=== PATIENT | female | born 1960 | race Caucasian/White ===

== ENCOUNTER → 2020-07-06 08:52 | Outpatient (CLI) | payer MEDICARE, BC, SELFPAY ==
--- NOTE | 2020-07-06 08:52 | FL_ITS ---
PROCEDURE: FL BARIUM SWALLOW CLINICAL INDICATION: diff swallowing COMPARISON: No exams were available for comparison TECHNIQUE: In the upright position the patient was observed to swallow barium in both the AP and lateral view. The cervical esophagus was examined under fluoroscopy with images obtained. The patient was then placed prone in the right anterior oblique position and was observed to swallow barium with Valsalva technique . FLUOROSCOPY TIME: 1 minutes and 1 second FINDINGS: Study is somewhat limited due to patient's inability to properly swallow and adequate amount contrast. The patient was only able to swallow a small amount of contrast at a time therefore lack incomplete distension. No obvious annular constricting lesions or large polypoid filling defects evident. There was spasm of the cricopharyngeus noted on separate imaging sets. No hiatal hernia evident. IMPRESSION: Somewhat limited exam due to lack of adequate distention. There is spasm of the cricopharyngeus muscle. Otherwise negative Dictated by: Rebel Farias MD 07/06/2020 10:42 Reebl Farias MD in [place] 07/06/2020 10:42
== END ==
PROVIDERS: PCP Physician Assistant; Visit Provider Otolaryngology
DX: R13.10 Dysphagia, unspecified (principal)
CPT/HCPCS: 74220

== ENCOUNTER → 2020-07-15 13:58 | Outpatient (CLI) | payer MEDICARE, BC, SELFPAY ==
--- NOTE | 2020-07-15 14:02 | XR_ITS ---
PROCEDURE: XR SHOULDER RT MIN 2V CLINICAL INDICATION: shoulder pain COMPARISON: No exams were available for comparison FINDINGS: No fracture or dislocation. No lytic or blastic change. There is normal mineralization. The joint spaces are well-preserved. No significant degenerative/arthritic changes. No erosive changes evident. Other findings:None. IMPRESSION: No acute findings. Dictated by: Rebel Farias MD 07/15/2020 14:39 Rebel Farias MD in [place] 07/15/2020 14:39
== END ==
PROVIDERS: PCP Physician Assistant; Visit Provider Physician Assistant
DX: M25.511 Pain in right shoulder (principal)
CPT/HCPCS: 73030

== ENCOUNTER → 2020-07-28 14:35 | Outpatient (CLI) | payer MEDICARE, BC, SELFPAY ==
--- NOTE | 2020-07-28 14:39 | CT_ITS ---
PROCEDURE: CT CHEST WO CON CLINICAL INDICATION: NODULES Lung nodules, pulmonary nodule evaluation COMPARISON: No exams were available for comparison TECHNIQUE: Axial images obtained with sagittal and coronal reformats. All CT scans at the facility use one or more dose reduction, viz: automated exposure control, ma/kV adjustment per patient size (including targeted exams where dose is matched to indication, i.e. head), or iterative reconstruction technique. FINDINGS: HEART AND MEDIASTINAL STRUCTURES: There are scattered small lymph nodes in the mediastinum with no dominant mediastinal or hilar adenopathy or mass. Coronary artery calcifications are present. LUNGS AND PLEURAL SPACES: No suspicious pulmonary nodules apparent. There is some faint ground-glass opacity in the lateral aspect of the left lower lobe inferiorly nonspecific. No effusions or lobar consolidation. Central airways are unremarkable. BONY STRUCTURES: Sclerotic focus is present in the left humeral head and may represent a bone island. UPPER ABDOMEN: Scattered areas of decreased attenuation are present in the liver consistent with fatty liver infiltration ADDITIONAL FINDINGS: No other significant abnormalities. IMPRESSION: 1. No suspicious pulmonary nodules apparent. 2. Patchy ground-glass density peripheral in nature in the left lower lobe laterally nonspecific and could be infectious or inflammatory 3. Coronary artery calcification. 4. Fatty liver Dictated by: Rebel Farias MD 07/29/2020 09:38 Rebel Farias MD in [facility] 07/29/2020 09:38
== END ==
PROVIDERS: PCP Physician Assistant; Visit Provider Internal Medicine Pulmonary Disease
DX: R93.89 Abnormal findings on diagnostic imaging of other specified body structures (principal)
CPT/HCPCS: 71250

== ENCOUNTER → 2020-08-11 13:34 | Outpatient (CLI) | payer MEDICARE, BC, SELFPAY ==
--- NOTE | 2020-08-11 13:39 | XR_ITS ---
PROCEDURE: XR SHOULDER RT MIN 2V CLINICAL INDICATION: right shoulder pain COMPARISON: CR XR SHOULDER RT MIN 2V from 07/15/2020 FINDINGS: No fracture or dislocation. No lytic or blastic change. There is normal mineralization. The joint spaces are well-preserved. No significant degenerative/arthritic changes. No erosive changes evident. Other findings:None. IMPRESSION: No acute findings. Dictated by: Rebel Farias MD 08/11/2020 14:15 Rebel Farias MD in [place] 08/11/2020 14:15
== END ==
PROVIDERS: PCP Physician Assistant; Visit Provider Orthopaedic Surgery
DX: M25.511 Pain in right shoulder (principal)
CPT/HCPCS: 73030

== ENCOUNTER 2020-10-21 16:11 | Emergency (ER) | payer MEDICARE, BC, SELFPAY ==
[2020-10-21 16:12] VITALS: BP 145/115; PULSE 91; RESP 20; TEMP 36.8; O2SAT 98; BMI 29.3
--- NOTE | 2020-10-21 16:15 | XR_ITS ---
PROCEDURE: XR CHEST PORTABLE CLINICAL HISTORY: soa Shortness of COMPARISON: CT CT CHEST WO CON from 07/28/2020 FINDINGS: The cardiomediastinal silhouette and pulmonary vascularity are within normal limits. The lungs are clear without infiltrates, suspicious nodules, or pleural effusions. No acute bony abnormalities. IMPRESSION: No acute findings. Dictated by: Rebel Farias MD 10/21/2020 17:44 Rebel Farias MD in [place] 10/21/2020 17:44
--- NOTE | 2020-10-21 16:18 | PC.NURSE ---
rad notified of xray order, spoke with tamar
[2020-10-21 16:24] LABS: Basophils # 0.1 K/mm3 (0-0.2); Basophils % 1.3 % (0.1-2.0); Eosinophils # 0.3 K/mm3 (0.0-0.4); Eosinophils % 2.8 % (0.1-12.0); Hematocrit 45.7 % (37.0-47.0); Hemoglobin 15.3 g/dL (12.2-16.2); Lymphocytes # 2.6 K/mm3 (0.7-4.5); Lymphocytes % 27.4 % (10-50); Mean Corpuscular HGB Conc 33.5 g/dL (31.8-35.4); Mean Corpuscular Hemoglobin 31.6 pg (27.0-31.2); Mean Corpuscular Volume 94.3 fl (81-99); Mean Platelet Volume 7.7 fl (7.4-10.4); Monocytes % 10.3 % (1.7-9.3); Neutrophils # 5.6 K/mm3 (1.8-7.8); Neutrophils % 58.3 % (37.0-80.0); Platelet Count 413 K/mm3 (142-424); Red Blood Count 4.84 M/mm3 (4.20-5.40); Red Cell Distribution Width 13.6 % (11.5-17.5); White Blood Count 9.5 K/mm3 (4.8-10.8)
--- NOTE | 2020-10-21 16:25 | ECG_ITS ---
APPROVED REPORT Exam: Resting ECG HR:84 bpm ECG Measurements Heart Rate 84 AXES MN 190 P 48 QRSd 86 QRS 32 QT 384 T 44 QTc 453 Conclusion Normal sinus rhythm Left atrial abnormality RSR' or QR pattern in V1 suggests right ventricular conduction delay Borderline ECG Electronically signed by : Sujit Kilgore, 10/23/2020 07:13:06
[2020-10-21 16:37] VITALS: BP 91/54; PULSE 88; O2SAT 93
[2020-10-21 16:38] LABS: Anion Gap 15.2 mEq/L (5-15); Blood Urea Nitrogen 10 mg/dl (7-17); Calcium 10.4 mg/dl (8.4-10.2); Carbon Dioxide 27 mmol/L (22.0-30.0); Chloride 103 mmol/L (98-107); Creatinine Clearance Estimated 106 mL/min (50-200); Estimated Glomerular Filt Rate 86 ml/min (>60); GFR (African American) 104 ML/MIN (>60); Glucose 123 mg/dl (74-100); Potassium 4.2 mmoL/L (3.5-5.1); Sodium 141 mmol/L (136-145)
[2020-10-21 16:42] LABS: D-Dimer 0.72 ug/mL (0.15-8.0)
[2020-10-21 17:11] LABS: Troponin I < 0.01 ng/ml (0.00-0.034)
[2020-10-21 17:15] VITALS: BP 152/88; PULSE 90; O2SAT 96
--- NOTE | 2020-10-21 17:21 | CT_ITS ---
PROCEDURE: CT ANGIO CHEST CLINCIAL INDICATION: pulmonary embolism Chest pain COMPARISON: No exams were available for comparison TECHNIQUE: IV Contrast: 70ML Isovue 370 Axial images obtained with sagittal and coronal reformats. All CT scans at the facility use one or more dose reduction, viz: automated exposure control, ma/kV adjustment per patient size (including targeted exams where dose is matched to indication, i.e. head), or iterative reconstruction technique. FINDINGS: HEART AND MEDIASTINAL STRUCTURES: No evidence of aortic aneurysm, dissection, or pulmonary embolus. There are mildly prominent lymph nodes within the mediastinum in the AP window and left paratracheal region. These appear slightly more bulky. LUNGS AND PLEURAL SPACES: Mild motion artifact does somewhat obscure fine detail in the lung bases. No lobar consolidation or collapse. There is a 13 mm left juxta hilar nodule which could be due to developing pulmonary nodule or lymph node.. 4 mm nodule left upper lobe medially unchanged. BONY STRUCTURES: No acute bony abnormalities apparent. UPPER ABDOMEN: Unremarkable. ADDITIONAL FINDINGS: No other significant abnormalities. IMPRESSION: 1. No evidence of pulmonary embolus or aortic aneurysm or dissection. 2. Mediastinal adenopathy which is slightly progressed compared to the previous exam. 3. 13 mm nodule in the left infrahilar area which may be related to developing neoplasm or adenopathy. Suggest PET-CT for further evaluation. Dictated by: Rebel Farias MD 10/22/2020 06:38 Rebel Farias MD in [place] 10/22/2020 06:38
--- NOTE | 2020-10-21 17:34 | HMH.EDGENADL ---
ED Disposition Clinical Impression: Cough, Pulmonary nodule Disposition: Home, Self-Care Condition on Discharge: Good Additional Instructions: Follow-up with your primary care physician and pulmonary for evaluation of the pulmonary nodule. Turn to the emergency department within the next 8 hours should you have worsening chest pain shortness of air fever or any other concerns. Otherwise follow-up in the next 1 to 2 days with your primary care physician Referrals: Silvina Adamson PA [Primary Care Provider] - Acosta Arvizu MD [Physician] - - Critical Care Critical Care Time: No Attestation: On 10/21/20, the high probability of a clinically significant, sudden or life threatening deterioration of the following system(s) required my full and direct attention, intervention and personal management. The time I documented below is in addition to time spent performing reported procedures but includes the following listed in this critical care notation. Medical Decision Making - Medical Records Medical records reviewed: Yes: I reviewed the patient's medical records. - Domingo Inquiry Pt receiving controlled substance: No Vital Signs: 10/21/20 16:12 10/21/20 16:37 10/21/20 17:15 Temperature 98.2 F Temperature Source Oral Pulse Rate [Right Radial] 91 H 88 90 Respiratory Rate 20 Blood Pressure [Right Arm] 145/115 H 91/54 L 152/88 H Blood Pressure Mean [Right Arm] 125 66 109 Blood Pressure Source [Right Arm] Automatic Cuff Automatic Cuff Automatic Cuff Blood Pressure Position [Right Arm] Sitting Sitting Sitting 02 Sat by Pulse Oximetry 98 93 L 96 Oxygen Delivery Method Room Air Room Air Room Air - Lab Data Lab Results 10/21/20 16:15: WBC 9.5, RBC 4.84, Hgb 15.3, Hct 45.7, MCV 94.3, MCH 31.6 H, MCHC 33.5, RDW 13.6, Plt Count 413, MPV 7.7, Neut % (Auto) 58.3, Lymph % (Auto) 27.4, Haakon % (Auto) 10.3 H, Eos % (Auto) 2.8, Baso % (Auto) 1.3, Neut # (Auto) 5.6, Lymph # (Auto) 2.6, Haakon # (Auto) 1.0, Eos # (Auto) 0.3, Baso # (Auto) 0.1 12/16/20 16:15: D-Dimer 0.72 10/21/20 16:15: Sodium 141, Potassium 4.2, Chloride 103, Carbon Dioxide 27, Anion Gap 15.2 H, BUN 10, Creatinine 0.70, Estimated Creat Clear 106, Estimated GFR 86, Est GFR ( Amer) 104, Glucose 123 H, Calcium 10.4 H, Troponin I < 0.01 10/21/20 16:15: SARS-CoV-2 IgG Ab (Rapid) Negative, SARS-CoV-2 IgM Ab (Rapid) Negative Result diagrams: 10/21/20 16:15 10/21/20 16:15 Orders (Tests/Meds): ED MEDICATIONS Discontinued Medications Generic Name Dose Route Start Last Admin Trade Name Freq PRN Reason Stop Dose Admin Iopamidol 70 ml 10/21/20 17:47 10/21/20 17:48 Iopamidol-370 (76%); 50ml Vial IV 10/21/20 17:48 70 ml ONCE ONE Administration Sodium Chloride 10 ml 10/21/20 17:47 10/21/20 17:48 Sodium Chloride 0.9% 10ml Syr (Rad Only) IV 10/21/20 17:48 10 ml ONCE ONE Administration Sodium Chloride 50 ml 10/21/20 17:47 10/21/20 17:48 0.9 % Sodium Chloride 50 Ml Vial IV 10/21/20 17:48 50 ml ONCE ONE Administration ORDERS Category Date Time Status CTA Chest [CT angio chest] Stat Cat Scan 10/21/20 17:21 Taken Troponin I Q3H Lab 10/21/20 19:15 Ordered Troponin I Q3H Lab 10/21/20 22:15 Ordered Medical Decision Narrative: 60-year-old female with shortness of breath and cough for the last few days. She is in no acute distress nontoxic-appearing comfortable in the room. Her symptoms are atypical for myocardial infarction. She was low risk per Wells score however D-dimer was positive, CT angio chest was obtained to assess for pulmonary embolism. EKG was otherwise unremarkable. CT angio chest was negative for pulmonary embolism however there was possible malignancy identified. I gave the CAT scan report to the patient and instructed her to follow-up with pulmonary and with her primary care physician for further work-up. Very low risk for myocardial infarction and first troponin was negative, in the se
[2020-10-21 17:35] VITALS: BP 144/90; PULSE 81; O2SAT 98
[2020-10-21 17:38] LABS: Coronavirus 19 IgG Antibody Negative (Negative); Coronavirus 19 IgM Antibody Negative (Negative)
--- NOTE | 2020-10-21 17:38 | PC.NURSE ---
pt gone to ct
[2020-10-21 18:30] VITALS: BP 152/88; PULSE 90; O2SAT 97
--- NOTE | 2020-10-21 18:58 | PC.NURSE ---
Spoke with dispatch at [facility], they have a ride coming for the pt and his name is Reji and he will be coming from [place].
[2020-10-21 19:17] VITALS: BP 148/84; PULSE 92; RESP 18; TEMP 36.8; O2SAT 97
== END 2020-10-21 19:19 | disposition home or self-care (01) ==
PROVIDERS: Emergency Provider Emergency Medicine; PCP Physician Assistant
DX: R91.1 Solitary pulmonary nodule (principal); F41.8 Other specified anxiety disorders; E03.9 Hypothyroidism, unspecified; Z79.899 Other long term (current) drug therapy
CPT/HCPCS: 71045; 71275; 80048; 84484; 85025; 85378; 86328; 93005; 99283; Q9967

== ENCOUNTER 2020-11-02 13:00 | Outpatient (RCR) | payer MEDICARE, BC, SELFPAY ==
--- NOTE | 2020-08-14 14:54 | HMH.PTOPEV ---
PT Outpatient Evaluation Rehab PT Outpatient Evaluation Start: 08/14/20 14:02 Freq: Status: Active Protocol: Document 08/14/20 14:43 PHOLINCOLN (Rec: 08/14/20 14:54 PHORNE [id number]) Electronically Signed By Wilberto Pardo, PT 08/14/20 14:43 Outpatient Therapy Subjective History Subjective History Pt is 59 yowf who presents c/o L side low back pain x ~ 3 mos. She reports insidious onset of symptoms and initially had severe L LE pain . However, at this time her L LE is no longer painful and all of her symptoms reported are the left side of my back feels tight. She reports no numbness or tingling at this time. Pt presents with some obviously high levels of anxiety at baseline. Chief Complaint Pain,Stiff Symptom Type Ache Symptoms Relieved By Rest/Positioning,Heat Symptoms Aggravated By Walking Prior Functional Limitations None Current Functional Limitations Walking Symptom Description Constant but Variable,Activity Dependent Level of pain today (0-10) 4 Pain scale - at its worst (0-10) 9 Lumbopelvic Eval Posture Thoracic Spine Posture Standing Position Neutral Lumbar Spine Posture Standing Position Neutral Assistive device Assistive Devices None / NA Gait Observation General Gait Pattern Observation No Deviations/Normal Palapation tenderness left lumbar spinal tenderness Yes: 2/4 paraspinal tenderness Yes: 2/4 buttock tenderness Yes: 2/4 Range of Motion Lumbar Spine Active Flexion Range of 0-65 Motion (degrees) Lumbar Spine Active Extension Range of 0-25 Motion (degrees) Left Lumbar Spine Lateral Flexion Active 0-20 Range of Motion (degrees) Right Lumbar Spine Lateral Flexion 0-20 Active Range of Motion (degrees) Manual Muscle Test Bilateral Knee Extension Strength Grade 5 Normal Knee Flexion Strength Grade 5 Normal Hip Flexion Strength Grade 5 Normal Hip Abduction Strength Grade 5 Normal Hip Adduction Strength Grade 5 Normal Hip Extension Strength Grade 5 Normal Gluteus Robert Strength Grade 5 Normal Extensor Hallucis Longus Strength Grade 5 Normal Ankle Dorsiflexion Strength Grade 5 Normal Gastronemius/Soleus Strength Grade 5 Normal DTR Rt Patellar 2+ Lt Patellar 2+ Rt Gastroc/Soleus 2+ Lt Ga
--- NOTE | 2020-09-14 13:55 | HMH.RHREAS ---
Rehab Reassessment Rehab OP Re-assessment Start: 09/14/20 13:51 Freq: Status: Active Protocol: Document 09/14/20 13:51 TIANNA (Rec: 09/14/20 13:54 TIANNA [id number]) Electronically Signed By Wilberto Pardo, PT 09/14/20 13:51 Rehab Re-assessment Subjective Subjective Pt reports pain is decreased overall, but some spasm remain . Objective Objective Notes Lumbar AROM remains WNL throughout. Palpation tenderness: 1/4 B lumbar paraspinals. Assessment Progress Assessment Progressing as Expected Assessment Notes Continues to improve mobility and has less pain. Stretching continues to improve. Patient goals met ST,2,3,4 Goals Not Met LT,2,3,4 Revised Goals none Plan Plan Continue per initial POC. Frequency of Therapy 2 x/wk Duration of therapy 8 wks Time and Billing Re-Eval Time 15 Re-Eval Billing Units 1 PHYSICIAN CERTIFICATION: I certify the specified therapy services for Marizol Landaverde are required, authorized, and reviewed every 30 days.
== END 2020-11-02 13:05 | disposition home or self-care (01) ==
LOC: PT 13:00
PROVIDERS: PCP Physician Assistant; Visit Provider Physician Assistant
DX: M54.32 Sciatica, left side (principal); M54.5 Low back pain
CPT/HCPCS: 97010; 97014; 97110; 97140; 97163; 97164; G0283

== ENCOUNTER → 2020-11-10 10:11 | Outpatient (CLI) | payer MEDICARE, BC, SELFPAY ==
--- NOTE | 2020-11-10 10:12 | CA_ITS ---
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 101.00 (40-130 cm/s) MV A Velocity 94.00 (40-130 cm/s) E/A Ratio 1.07 MV Decel. Time 210.00 (160-240 ms) MV PHT 62.00 ms Left Ventricle Left atrium is qualitatively mildly enlarged, left ventricle is normal size, mild qualitative concentric left ventricular hypertrophy, visually estimated ejection fraction 55% with no regional wall motion abnormality, diastolic parameters are within normal range. Right Ventricle Right atrium and right ventricle are normal size and contractility. Aortic Valve Aortic valve is minimally thickened and fibrosed, there is no aortic stenosis or aortic insufficiency. Mitral Valve Mitral valve is grossly normal, there is mild mitral regurgitation. Tricuspid Valve Tricuspid valve grossly normal, there is trace tricuspid regurgitation. Pulmonic Valve Pulmonic valve is poorly visualized. Great Vessels Aortic root is normal size. Pericardium No significant pericardial effusion noted. Conclusion 1. Mildly enlarged left atrium, normal left ventricular size, mild concentric left ventricular hypertrophy, visually estimated ejection fraction 55% with no regional wall motion abnormality, diastolic parameters are within normal range. 2. Mild mitral and trace tricuspid regurgitation. 3. No significant pericardial effusion noted. Electronically signed by : Johnnie Beach, 11/11/2020 06:02:06
== END ==
PROVIDERS: PCP Physician Assistant; Visit Provider Physician Assistant
DX: R06.00 Dyspnea, unspecified (principal); Z03.818 Encounter for observation for suspected exposure to other biological agents ruled out
CPT/HCPCS: 93306; U0003

== ENCOUNTER → 2020-12-01 10:59 | Outpatient (CLI) | payer MEDICARE, BC, SELFPAY ==
[2020-12-01 13:18] LABS: Coronavirus 19 IgG Antibody Positive (Negative); Coronavirus 19 IgM Antibody Negative (Negative)
== END ==
PROVIDERS: Visit Provider Internal Medicine Pulmonary Disease
DX: Z01.812 Encounter for preprocedural laboratory examination (principal); Z20.822 Contact with and (suspected) exposure to COVID-19; Z86.16 Personal history of COVID-19; R91.1 Solitary pulmonary nodule; R59.0 Localized enlarged lymph nodes
CPT/HCPCS: 36415; 86328

== ENCOUNTER 2020-12-02 11:16 | Day surgery (SDC) | payer MEDICARE, BC, SELFPAY ==
[2020-11-26 13:29] VITALS: BMI 30.9
[2020-12-02] VITALS (9 sets, daily range): BP systolic 126–157; BP diastolic 63–92; PULSE 64–78; RESP 16–18; TEMP 36.2–36.5; O2SAT 96–100
[2020-12-02 11:28] LABS: Adenovirus,PCR Not Detected (NotDetected); Bordetella Pertussis Not Detected (NotDetected); Chlamydophila Pneumoniae, PCR Not Detected (NotDetected); Coronavirus 19, PCR Not Detected (NotDetected); Coronavirus 229E Not Detected (NotDetected); Coronavirus NL63 Not Detected (NotDetected); Coronavirus OC43 Not Detected (NotDetected); Coronovirus HKU1,PCR Not Detected (NotDetected); Human Metapneumovirus Not Detected (NotDetected); Influenza A, PCR Not Detected (NotDetected); Influenza AH1, 2009 Not Detected (NotDetected); Influenza AH1, PCR Not Detected (NotDetected); Influenza AH3,PCR Not Detected (NotDetected); Influenza B, PCR Not Detected (NotDetected); Mycoplasma Pneumoniae, PCR Not Detected (NotDetected); Parainfluenza 1, PCR Not Detected (NotDetected); Parainfluenza 2, PCR Not Detected (NotDetected); Parainfluenza 3, PCR Not Detected (NotDetected); Parainfluenza 4, PCR Not Detected (NotDetected); Respiratory Syncytial Virus Not Detected (NotDetected); Rhinovirus/Enterovirus Not Detected (NotDetected)
--- NOTE | 2020-12-02 15:33 | P.PN_ITS ---
[facility] Anesthesia Record Part I Intake, IV Amount: 1,000 Estimated blood loss (mL): 2 Urine output (mL): 0 Blood Products used (#): none Blood Pressure: 144/73 SaO2: 99 Pulse Rate: 67 Respiratory Rate: 18 Temperature: 97.1 F Patient is:: Awake
--- NOTE | 2020-12-03 11:31 | HMH.BRONCH ---
- Procedure: Date: 12/02/20 Patient Date of :: 1960 Procedure Performed:: Bronchoscopy with EBUS FNA Indications:: Mediastinal and hilar lymphadenopathy Performing Provider:: Acosta Arvizu MD Referring Provider:: Dr. Mancia Sedation:: General anesthesia Procedure:: EBUS FNA: A clean EBUS bronchoscopy was advanced through 8 and half size ET tube and airways were examined up to subsegmental bronchi no obvious airway pathology noted however this should be cancer given the limitations of the EBUS scope use. Lymph nodes which were examined in both the right side and left side,. No hilar or mediastinal lymphadenopathy or right-sided lymph node stations noted. Patient noted to have 4L, 7 and 10 L lymphadenopathies. FNA samples were obtained from this the lymph node station with 5 passes on each lymph node. Pathology onsite did not find any evidence of malignancy. Confirm adequate sample acquisition. Discussed with the pathology and both agreed on the need for AFB and fungal staining if patient were to show any granulomatous inflammation on the cytopathology. Plan: We will follow the patient in clinic as previously scheduled. Findings:: Please see the procedure note. Recommendations:: Follow in the clinic as previously scheduled. Complications:: None Estimated blood obtained (mL): 2
[2020-12-03 16:17] VITALS: BP 145/66; PULSE 68; TEMP 36.4
--- NOTE | 2020-12-03 16:17 | P.PN_ITS ---
[facility] Anesthesia Record Part II Discharge Time: 15:58 Destination: Surgical Day Care (OP Surgery) PACU nurse assessment reviewed?: Yes Patient Condition:: Good Anesthesia Complications:: None Swallowing reflex intact?: Yes Cyanosis?: No Blood Pressure: 145/66 Pulse Rate: 68 Temperature: 97.5 F Mental Status: Alert & Oriented Pain level:: 0 Nausea and/or vomitting:: None Intake, IV Amount: 0
== END 2020-12-02 16:30 | disposition home or self-care (01) ==
LOC: OR 11:17
PROVIDERS: PCP Physician Assistant; Visit Provider Internal Medicine Pulmonary Disease
PROC: (CPT 31653; principal; 2020-12-02 12:00)
DX: R59.0 Localized enlarged lymph nodes (principal); R91.1 Solitary pulmonary nodule; I10 Essential (primary) hypertension; E03.9 Hypothyroidism, unspecified; Z79.899 Other long term (current) drug therapy; Z88.8 Allergy status to other drugs, medicaments and biological substances
CPT/HCPCS: 31653; 87581; 87633; 87798; 88172; 88173; 88305; 88312; J0330; J2710; U0003

== ENCOUNTER → 2021-01-05 12:42 | Outpatient (CLI) | payer MEDICARE, BC, SELFPAY ==
[2021-01-05 13:44] LABS: Coronavirus 19 IgG Antibody Negative (Negative); Coronavirus 19 IgM Antibody Negative (Negative)
== END ==
PROVIDERS: Visit Provider Surgery
DX: Z01.818 Encounter for other preprocedural examination (principal); Z20.822 Contact with and (suspected) exposure to COVID-19; M25.511 Pain in right shoulder
CPT/HCPCS: 36415; 86328

== ENCOUNTER 2021-01-08 10:28 | Day surgery (SDC) | payer MEDICARE, BC, SELFPAY ==
[2021-01-06 12:05] VITALS: BMI 30.9
[2021-01-08 10:48] VITALS: BP 132/68; PULSE 75; RESP 18; TEMP 36.5; O2SAT 97
[2021-01-08 11:24] VITALS: BP 125/82; PULSE 68; RESP 18; TEMP 36.4; O2SAT 95
--- NOTE | 2021-01-08 11:25 | HMH.OPNOTE ---
Date of procedure: 01/08/21 Pre-op Diagnosis:: Skin neoplasm of uncertain behavior (right hand)-5 mm Post-op Diagnosis:: Same Procedure performed:: Excision of right hand skin neoplasm Surgeon:: Jorje Irvin MD Anesthesia: local Estimated blood loss (mL): 1 Operative findings:: Lesion excised in toto Operative note:: After informed consent was obtained the patient was taken to the procedure room. Her right hand was prepped and draped in a sterile fashion. After infiltration with local anesthetic an elliptical incision was made around the lesion. The deep subcutaneous tissue was sharply dissected. The lesion was excised in toto and passed off for pathologic evaluation. Thermal cautery was utilized to achieve hemostasis. Skin was reapproximated with interrupted 5-0 nylon. Dressings were applied and the patient was discharged in good condition. Condition: stable Disposition: no change Specimens:: Right hand skin neoplasm Complications:: No immediate
== END 2021-01-08 11:35 | disposition home or self-care (01) ==
LOC: OUTP 10:30
PROVIDERS: PCP Physician Assistant; Visit Provider Surgery
PROC: (CPT 11426; principal; 2021-01-08 11:30)
DX: L57.0 Actinic keratosis (principal); I10 Essential (primary) hypertension; F41.9 Anxiety disorder, unspecified; F32.9 Major depressive disorder, single episode, unspecified; E03.9 Hypothyroidism, unspecified; M19.90 Unspecified osteoarthritis, unspecified site; Z79.899 Other long term (current) drug therapy
CPT/HCPCS: 11426; 88305

== ENCOUNTER → 2021-02-09 10:20 | Outpatient (POV) | payer MEDICARE, BC, SELFPAY | PROVIDERS: Visit Provider Dermatology | DX: Z00.00 Encounter for general adult medical examination without abnormal findings (principal) ==

== ENCOUNTER → 2021-03-02 13:00 | Outpatient (CLI) | payer MEDICARE, BC, SELFPAY ==
--- NOTE | 2021-03-02 13:01 | CT_ITS ---
PROCEDURE: CT CHEST WO CON CLINICAL INDICATION: Nodule follow up Nodule in lungs SOB COMPARISON: CT CT ANGIO CHEST from 10/21/2020 TECHNIQUE: Axial images obtained with sagittal and coronal reformats. All CT scans at the facility use one or more dose reduction, viz: automated exposure control, ma/kV adjustment per patient size (including targeted exams where dose is matched to indication, i.e. head), or iterative reconstruction technique. FINDINGS: HEART AND MEDIASTINAL STRUCTURES: Scattered mildly prominent mediastinal lymph nodes are once again noted. The largest cluster of nodes in the left precarinal region not significantly changed measuring 2.7 x 1.2 cm. Coronary artery calcifications are present. LUNGS AND PLEURAL SPACES: Infrahilar nodule is present on the left within the left upper lobe medially measuring 10 x 10 mm. Nodule is not significantly changed and possibly slightly smaller. No new nodules are evident. There is faint ground-glass attenuation in the right lower lobe laterally BONY STRUCTURES: No acute bony abnormalities apparent. UPPER ABDOMEN: Fatty liver ADDITIONAL FINDINGS: No other significant abnormalities. IMPRESSION: Stable CT appearance of the chest. No change in the left infrahilar nodule and mildly prominent mediastinal lymph nodes. Suggest 6 month follow-up to confirm stability. Dictated by: Rebel Farias MD 03/03/2021 09:38 Rebel Farias MD in [place] 03/03/2021 09:38
== END ==
PROVIDERS: PCP Physician Assistant; Visit Provider Internal Medicine Pulmonary Disease
DX: R59.0 Localized enlarged lymph nodes (principal); R91.1 Solitary pulmonary nodule
CPT/HCPCS: 71250

== ENCOUNTER 2021-03-16 15:00 | Outpatient (RCR) | payer MEDICARE, BC, SELFPAY ==
--- NOTE | 2021-01-11 14:05 | HMH.PTOPEV ---
PT Outpatient Evaluation Rehab PT Outpatient Evaluation Start: 01/11/21 13:24 Freq: Status: Active Protocol: Document 01/11/21 13:50 TIANNA (Rec: 01/11/21 14:04 PHORNE [id number]) Electronically Signed By Wilberto Pardo, PT 01/11/21 13:50 Outpatient Therapy Subjective History Subjective History Pt is 60 yowf who presents with c/o pain in the R shld x ~ 6-7 yr. 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 She also c/o intermittent numbness or tingling in the R UE, but I have carpal tunnel problems too. She has PMH of HTN, Anxiety, Depression. Chief Complaint Pain,Stiff Symptom Type Ache,Sharp Symptoms Relieved By Rest/Positioning Symptoms Aggravated By Physical Activity Prior Functional Limitations None Current Functional Limitations Lifting,Housework,Sleeping, Recreation Activity Symptom Description Constant but Variable Level of pain today (0-10) 7 Pain scale - at its worst (0-10) 8 Shoulder/Elbow Eval Shoulder Objective Measurements Palpation Tenderness tenderness shoulder exam standard right tenderness over the bicipital tendon right shoulder exam standard tenderness over the SA bursa shoulder right exam standard Shoulder Palpation Findings Tenderness Shoulder Palpation Overall Comment upper trap Shoulder ROM Right full ROM shoulder exam standard right Shoulder MMT Shoulder Abduction Strength Grade 4 Good Shoulder Flexion Strength Grade 4 Good Shoulder External Rotation Strength 4 Good Grade Shoulder Special Tests impingement sign present shoulder exam right standard Shoulder Empty Can (Supraspinatus) Test Negative Left,Negative Right Shoulder Bernardo-Vladimir Impingement Negative Left,Positive Right Test Shoulder Anterior Load and Shift Test Negative Left,Negative Right Shoulder Posterior Load and Shift Test Negative Left,Negative Right Shoulder Sauk Test Negative Left,Negative Right Elbow Objective Measurements Outpatient Therapy Assessment Impairments Problems/Impairmments Palpation Tenderness,Impaired Strength,Impaired Endurance, Impaired Recreational
--- NOTE | 2021-02-11 14:58 | HMH.RHREAS ---
Rehab Reassessment Rehab OP Re-assessment Start: 02/11/21 14:53 Freq: Status: Active Protocol: Document 02/11/21 14:53 TIANNA (Rec: 02/11/21 14:57 PHOLINCOLN [id number]) Electronically Signed By Wilberto Pardo, PT 02/11/21 14:53 Rehab Re-assessment Subjective Subjective Pt reports 9/10 pain in R UT this date. Objective Objective Notes MMT R SHLD: Flex= 5/5, ABD= 4+ /5, IR= 4+/5, ER= 4+/5. Palpation tenderness: 3/4 R UT muscle belly. Assessment Progress Assessment Progressing as Expected Assessment Notes Pt continues to c/o increased R shld pain, but has improved strength. Pt extreme anxiety limits any ability at realxing any of her muscles for a sustained amount of time. She continues to require verbal and physical cues for proper form with all exrecises. Patient goals met ST,3,[address] LTG; 1,2,3,4 Revised Goals none Plan Plan Continue per initial POC. Frequency of Therapy 2 x/wk Duration of therapy 8 wks Time and Billing Re-Eval Time 15 Re-Eval Billing Units 0 PHYSICIAN CERTIFICATION: I certify the specified therapy services for Marizol Landaverde are required, authorized, and reviewed every 30 days.
--- NOTE | 2021-03-16 14:22 | [facility].RHREAS ---
Rehab Reassessment Rehab OP Re-assessment Start: 02/11/21 14:53 Freq: Status: Active Protocol: Document 03/16/21 14:18 TIANNA (Rec: 03/16/21 14:22 PHOLINCOLN [id number]) Electronically Signed By Wilberto Pardo, PT 03/16/21 14:18 Rehab Re-assessment Subjective Subjective Pt c/o some decrease in pain of the R shld this date, 03/15 currently. She continues to report pain increases with further activity despite all treatments. Objective Objective Notes AROM R shld: Grossly WNL throughout. MMT R shld: Grossly 5/5 throughout. Palpation tenderness: 3/4 R Upper Trap muscle belly. Assessment Progress Assessment Progressing as Expected Assessment Notes Pt has significantly improved with strength and AROM remains WNL throughout the R shld. She continues to c/o pain with most any activity despite these improvements. She remains extremely anxious with all activity which appears to increase her pain. Patient goals met ST,3,[address] LTG; 1,2,3,4 Revised Goals none Plan Plan Will D/C pt at this time and recommend further MD work-up. Frequency of Therapy 0 x/wk Duration of therapy 0 wks Time and Billing Re-Eval Time 15 Re-Eval Billing Units 0 PHYSICIAN CERTIFICATION: I certify the specified therapy services for Marizol Landaverde are required, authorized, and reviewed every 30 days.
== END 2021-03-16 15:05 | disposition home or self-care (01) ==
LOC: PT 15:00
PROVIDERS: PCP Physician Assistant; Visit Provider Orthopaedic Surgery
DX: M25.511 Pain in right shoulder (principal)
CPT/HCPCS: 97010; 97014; 97016; 97033; 97110; 97140; 97163; 97164; G0283

== ENCOUNTER → 2021-06-28 18:09 | Outpatient (CLI) | payer MEDICARE, BC, SELFPAY ==
[2021-06-28 18:16] LABS: Adenovirus,PCR Not Detected (NotDetected)
[2021-06-28 18:17] LABS: Bordetella Pertussis Not Detected (NotDetected); Chlamydophila Pneumoniae, PCR Not Detected (NotDetected); Coronavirus 229E Not Detected (NotDetected); Coronavirus NL63 Not Detected (NotDetected); Coronavirus OC43 Not Detected (NotDetected); Coronovirus HKU1,PCR Not Detected (NotDetected); Human Metapneumovirus Not Detected (NotDetected); Influenza A, PCR Not Detected (NotDetected); Influenza AH1, 2009 Not Detected (NotDetected); Influenza AH1, PCR Not Detected (NotDetected); Influenza AH3,PCR Not Detected (NotDetected); Influenza B, PCR Not Detected (NotDetected); Mycoplasma Pneumoniae, PCR Not Detected (NotDetected); Parainfluenza 1, PCR Not Detected (NotDetected); Parainfluenza 2, PCR Not Detected (NotDetected); Parainfluenza 3, PCR Not Detected (NotDetected); Parainfluenza 4, PCR Not Detected (NotDetected); Respiratory Syncytial Virus Not Detected (NotDetected); Rhinovirus/Enterovirus Not Detected (NotDetected)
== END ==
PROVIDERS: Visit Provider Physician Assistant
DX: R05 Cough (principal); Z20.822 Contact with and (suspected) exposure to COVID-19
CPT/HCPCS: 87486; 87581; 87633; 87798; U0003

== ENCOUNTER → 2021-09-23 18:00 | Outpatient (CLI) | payer MEDICARE, BC, SELFPAY ==
[2021-09-23 19:19] LABS: Alanine Aminotransferase 28 U/L (12-78); Albumin Level 4.4 g/dl (3.5-5.0); Albumin/Globulin Ratio 1.5 (1.1-1.8); Alkaline Phosphatase 74 U/L (38-126); Anion Gap 12.9 mEq/L (5-15); Aspartate Amino Transferase 26 U/L (14-36); Blood Urea Nitrogen 21 mg/dl (7-17); Calcium 9.8 mg/dl (8.4-10.2); Carbon Dioxide 29 mmol/L (22.0-30.0); Chloride 100 mmol/L (98-107); Chol/HDL Ratio 5.6 (1-3.5); Cholesterol 304 mg/dl (140-200); Estimated Glomerular Filt Rate 73 ml/min (>60); GFR (African American) 89 ML/MIN (>60); Globulin 2.9 g/dL (1.3-3.2); Glucose 82 mg/dl (74-100); HDL Cholesterol 54 mg/dl (40-60); Potassium 4.9 mmoL/L (3.5-5.1); Sodium 137 mmol/L (136-145); Total Protein,Serum 7.3 g/dl (6.3-8.2); Triglycerides 230 mg/dl (30-150); VLDL Cholesterol 46 mg/dL (0-40)
[2021-09-23 19:20] LABS: Basophils # 0.1 K/mm3 (0-0.2); Basophils % 0.6 % (0.1-2.0); Bilirubin,Total 0.1 mg/dl (0.2-1.3); Eosinophils # 0.1 K/mm3 (0.0-0.4); Eosinophils % 0.8 % (0.1-12.0); Hematocrit 46.1 % (37.0-47.0); Hemoglobin 15.1 g/dL (12.2-16.2); Lymphocytes # 2.3 K/mm3 (0.7-4.5); Lymphocytes % 16.3 % (10-50); Mean Corpuscular HGB Conc 32.7 g/dL (31.8-35.4); Mean Corpuscular Hemoglobin 31.2 pg (27.0-31.2); Mean Corpuscular Volume 95.6 fl (81-99); Mean Platelet Volume 9.8 fl (7.4-10.4); Monocytes # 1.2 K/mm3 (0.1-1.0); Monocytes % 8.6 % (1.7-9.3); Neutrophils # 10.5 K/mm3 (1.8-7.8); Neutrophils % 73.7 % (37.0-80.0); Platelet Count 566 K/mm3 (142-424); Red Blood Count 4.82 M/mm3 (4.20-5.40); Red Cell Distribution Width 13.2 % (11.5-17.5); White Blood Count 14.2 K/mm3 (4.8-10.8)
[2021-09-23 19:36] LABS: T4 (Thyroxine) 8.6 ug/dl (5.53-11.0)
[2021-09-23 19:38] LABS: 25-OH Vitamin D, Total 32.8 ng/mL (30-100)
[2021-09-23 19:50] LABS: Thyroid Stimulating Hormone 2.43 uIU/mL (0.465-4.68)
== END ==
PROVIDERS: Visit Provider Physician Assistant
DX: E66.9 Obesity, unspecified; E78.5 Hyperlipidemia, unspecified; E55.9 Vitamin D deficiency, unspecified; Z68.31 Body mass index [BMI] 31.0-31.9, adult
CPT/HCPCS: 80053; 80061; 82306; 84436; 84443; 85025